=== PATIENT | female | born 1950 | race Caucasian/White ===

== ENCOUNTER → 2016-09-17 | Outpatient (CLI) | payer OTHER ==
[~2016-09-17] MED LIST: ADVIL200 MG PO; BUSPIRONE HCL15 MG PO; COZAAR25 MG PO; FISH OIL 1,0001 EACH PO; GLUCOPHAGE1000 MG PO; GLUCOPHAGE500 MG PO; GLUCOTROL XL2.5 MG PO; PRAVACHOL20 MG PO; PRAVACHOL40 MG PO; PROVENTIL OR V6.7 GM INH; PROZAC40 MG PO; TRULICITY1.5 MG/0.5 SUB-Q; ULTRAM50 MG PO; XANAX0.5 MG PO; ZANTAC (NON-FO150 MG PO; ZICAM NASAL SPRAY NOSE
== END ==
LOC: LGSMG 09:44
DX: R53.81 Other malaise (principal); R53.83 Other fatigue; I10 Essential (primary) hypertension